=== PATIENT | male | born 1985 | race Caucasian/White ===

== ENCOUNTER 2018-10-13 07:53 | Emergency (ER) | payer OTHER ==
[2018-10-13 08:01] VITALS: BP 109/68
--- NOTE | 2018-10-13 08:40 | UC ---
Skin Complaint HPI - HPI Summary HPI Summary: 33-year-old male presents with rash to her left upper chest for several days. Patient states he went to [employer] over the weekend and noticed a red erythematous rash on his chest around Tuesday. Patient states it initially felt like a sunburn. Patient went to a receivable clerk who thought it could be fungal. Patient noticed worsening of rash and that it had a central blanching. He also reports myalgias, and headache. Denies seeing a tick on him but has been in a line endemic area. - History of Current Complaint Chief Complaint: UCSkin Time Seen by Provider: 10/13/18 08:03 Stated Complaint: RASH Pain Intensity: 6 - Allergy/Home Medications Allergies/Adverse Reactions: Allergies Allergy/AdvReac Type Severity Reaction Status Date / Time Penicillins Allergy unk Verified 10/13/18 07:57 PMH/Surg Hx/FS Hx/Imm Hx Previously Healthy: Yes Other History Of: Negative For: Anticoagulant Therapy - Surgical History Surgical History: None - Family History Known Family History: Positive: Non-Contributory Negative: Diabetes - Social History Alcohol Use: Occasionally Alcohol Amount: previously daily, now 3-4X/week Substance Use Type: None Smoking Status (MU): Former Smoker Review of Systems All Other Systems Reviewed And Are Negative: Yes Constitutional: Positive: Chills, Fatigue Skin: Positive: Rash Musculoskeletal: Positive: Myalgia Neurological: Positive: Headache Physical Exam - Summary Physical Exam Summary: Constitutional: Well-developed, Well-nourished, Alert. (-) Distressed Skin: large 10x20 cm area of erythema w central clearing to L upper chest/L lateral neck HENT: Normocephalic; Atraumatic, Eyes: Conjunctiva normal Neck: Musculoskeletal ROM normal neck. No nuchal rigidity (-) Stridor Cardio: Rhythm regular, rate normal, Heart sounds normal; Intact distal pulses; Radial pulses are 2+ and symmetric. (-) Murmur Pulmonary/Chest wall: Effort normal. (-) Respiratory distress, (-) Wheezes, (-) Rales Abd: Soft, (-) tenderness, (-) Distension, (-) Guarding, (-) Rebound Musculoskeletal: (-) Edema Lymph: (-) Cervical adenopathy Neuro: Alert, Oriented x3 Psych: Mood and affect Normal Vital Signs: Initial Vital Signs Temp 36.8 C 10/13/18 07:59 Pulse 67 10/13/18 07:59 Resp 16 10/13/18 07:59 BP 109/68 10/13/18 07:59 Pulse Ox 100 10/13/18 07:59 Course/Dx - Course Course Of Treatment: 33-year-old male who presents with rash to left upper chest VSS NAD. Physical exam and history concerning for erythema migrans rash. Given Lyme endemic area will send off iqugmiut titer as well as treatment with doxycycline twice a day for 21 days. Patient to follow-up with his primary care doctor and return for worsening symptoms - Diagnoses Provider Diagnosis: Erythema migrans (Lyme disease) Discharge - Sign-Out/Discharge Documenting (check all that apply): Patient Departure All imaging exams completed and their final reports reviewed: No Studies - Discharge Plan Condition: Stable Disposition: HOME Prescriptions: DOXYcycline CAP(*) [DOXYcycline 100MG CAP(*)] 100 mg PO BID 21 Days #42 cap Patient Education Materials: Lyme Disease (ED) Referrals: Hakeem Viera MD [Primary Care Provider] - 2 Days Additional Instructions: You were seen in the emergency Department for rash. Your rash is concerning for Lyme disease. Please take doxycycline twice a day for 21 days. We sent a Lyme test and will call you with the results. Please follow-up with your doctor within the next several days. Please emergency department for worsening symptoms including worsening headaches, fevers, chills, or if you are concerned. - Billing Disposition and Condition Condition: STABLE Disposition: Home
[2018-10-13] MEDS ORDERED: DOXYcycline CAP(*) 100 MG PO SCH (09:00)
--- NOTE | 2018-10-14 17:14 | UC ---
- Progress Note Progress Note: Lyme test positive. Patient already prescribe doxycycline 100 mg BID x 21 days. No change in POC. Course/Dx - Diagnoses Provider Diagnoses: Erythema migrans (Lyme disease) Discharge - Sign-Out/Discharge Documenting (check all that apply): Post-Discharge Follow Up All imaging exams completed and their final reports reviewed: No Studies - Discharge Plan Condition: Stable Disposition: HOME Prescriptions: DOXYcycline CAP(*) [DOXYcycline 100MG CAP(*)] 100 mg PO BID 21 Days #42 cap Patient Education Materials: Lyme Disease (ED) Referrals: Hakeem Viera MD [Primary Care Provider] - 2 Days Additional Instructions: You were seen in the emergency Department for rash. Your rash is concerning for Lyme disease. Please take doxycycline twice a day for 21 days. We sent a Lyme test and will call you with the results. Please follow-up with your doctor within the next several days. Please emergency department for worsening symptoms including worsening headaches, fevers, chills, or if you are concerned. - Billing Disposition and Condition Condition: STABLE Disposition: Home - Attestation Statements Provider Attestation: I was available for consult. This patient was seen by the MARK. The patient was not presented to, seen by, or examined by me. -Joan
== END 2018-10-13 08:59 | disposition home or self-care (01) ==
LOC: UCEAST 07:53
DX: A69.20 Lyme disease, unspecified (principal); Z88.0 Allergy status to penicillin; Z87.891 Personal history of nicotine dependence
CPT/HCPCS: 36415; 86617; 86618; 99212; G0463